=== PATIENT | female | born 1950 | race Two or more races ===

== ENCOUNTER 2024-05-24 23:29 | Emergency (ER) | payer OTHER ==
[~2024-05-24] VITALS: Ht 154.9 cm; Wt 70.3 kg
[2024-05-24] MEDS ORDERED: COZAAR50 MG PO (23:41)
[2024-05-24] MEDS ORDERED: ENULOSE10 GM/15 M PO (23:41)
[2024-05-24] MEDS ORDERED: JANUVIA50 MG PO (23:41)
[2024-05-25] MEDS ORDERED: LACTULOSE 20 G/30 ML BLIST.PACK PO STA (01:29)
[2024-05-25 01:56] LABS: HEMATOCRIT 37.5 % (36.0-45.00); HEMOGLOBIN 13.1 g/dL (12.0-15.00); MEAN CELL VOLUME 101.2 fL (80.00-100.00); MEAN CORPUSCULAR HEMOGLOBIN 35.3 pg (27.00-32.0); MEAN CORPUSCULAR HGB CONC 34.9 g/dl (32.0-36.0); RED BLOOD COUNT 3.71 M/uL (4.00-6.00); RED CELL DISTRIBUTION WIDTH 13.2 % (11.5-14.5)
[2024-05-25 02:17] LABS: INR 1.11; PARTIAL THROMBOPLASTIN TIME 34.7 SECONDS (22.0-34.0); PROTHROMBIN TIME 11.6 SECONDS (9.0-11.5)
[2024-05-25 02:22] LABS: BILIRUBIN TOTAL 2.57 mg/dL (0.3-1.2); CALCIUM 8.7 mg/dL (8.5-10.1); CREATININE SERUM 0.97 mg/dL (0.55-1.02); GFR 55.83; GLOBULINA 4.4 G/DL (2.4-3.5); TOTAL PROTEIN 7.4 gm/dL (6.4-8.2)
[2024-05-25 02:23] LABS: PLATELET COUNT 95 K/uL (150-450)
== END 2024-05-25 04:10 | disposition home or self-care (01) ==
LOC: ER 23:30
DX: K76.9 Liver disease, unspecified (principal)